=== PATIENT | female | born 1960 | race African-American/Black ===

== ENCOUNTER 2017-04-29 11:40 | Emergency (ER) | payer OTHER ==
[~2017-04-29] VITALS: Ht 162.6 cm; Wt 88.5 kg
[~2017-04-29 11:40] MED LIST: AUGMENTIN 875875 M1 PO; BACTRIM DS TAB1 EACH PO; BLOOD PRESSURE MED; IBUPROFEN 600600 M1 PO; NEXIUM40 MG PO; NORCO 5-325 TA1 EACH PO
[2017-04-29] MEDS ORDERED: BACTRIM DS TAB1 EACH PO (13:15)
[2017-04-29] MEDS ORDERED: NORCO 5-325 TA1 EACH PO (13:17)
[2017-04-29] MEDS ORDERED: NORVASC5 MG PO (13:32)
[2017-04-29] MEDS ORDERED: TRIMETHOPRIM /P10 M1 OP (13:33)
[2017-04-29 13:53] VITALS: BP 157/105
== END 2017-04-29 14:00 | disposition home or self-care (01) ==
LOC: ER 11:40
DX: L05.01 Pilonidal cyst with abscess (principal); I10 Essential (primary) hypertension